=== PATIENT | male | born 1935 | race Two or more races ===

== ENCOUNTER 2020-06-18 08:30 | Outpatient (CLI) | payer OTHER ==
[~2020-06-18 08:30] MED LIST: AMARYL; ASA81 MG; LOTREL 10/40 MG1 CAP; [UNRECOGNIZED DRUG - OTHER]
== END 2020-06-18 08:35 | disposition home or self-care (01) ==
LOC: RX STUDY 08:30
PROVIDERS: ATTEND Otolaryngology Plastic Surgery within the Head & Neck
DX: R13.19 Other dysphagia (principal)

== ENCOUNTER 2024-08-01 00:31 | Emergency (ER) | payer OTHER ==
[~2024-08-01] VITALS: Ht 167.6 cm; Wt 72.6 kg
[2024-08-01] MEDS ORDERED: ISOSORBIDE DINI30 MG PO (00:39)
[2024-08-01] MEDS ORDERED: ISOSORBIDE MONO60 MG PO (00:39)
[2024-08-01] MEDS ORDERED: CARVEDILOL ER40 MG PO (00:39)
[2024-08-01] MEDS ORDERED: GLIMEPIRIDE2 MG (00:39)
[2024-08-01] MEDS ORDERED: XARELTO10 MG PO (00:39)
[2024-08-01] MEDS ORDERED: LANTUS SOL100 UNIT/1 SQ (00:40)
[2024-08-01] MEDS ORDERED: LIPITOR40 M1 PO (00:40)
[2024-08-01] MEDS ORDERED: DIPHENHYDRAMINE HCL 50 MG/ML VIAL 1ML IV STA (01:26)
[2024-08-01] MEDS ORDERED: FAMOTIDINE/PF 20 MG/2 ML VIAL IV PUSH STA (01:26)
[2024-08-01] MEDS ORDERED: METHYLPREDNISOLONE SOD SUCC 125 MG VIAL IV STA (01:26)
[2024-08-01] MEDS ORDERED: ALLEGRA ALLERG180 MG PO (03:09)
== END 2024-08-01 03:15 ==
LOC: ER 00:33
DX: L50.8 Other urticaria (principal); I10 Essential (primary) hypertension; E11.9 Type 2 diabetes mellitus without complications; Z79.4 Long term (current) use of insulin; Z91.013 Allergy to seafood
CPT/HCPCS: 96365; 99282; J1200; J3490

== ENCOUNTER 2024-09-06 05:49 | Inpatient (IN) | payer OTHER ==
[~2024-09-06] VITALS: Ht 154.9 cm; Wt 63.5 kg
[~2024-09-06 05:49] MED LIST changes: +ALLEGRA ALLERG180 MG PO; +CARVEDILOL ER40 MG PO; +GLIMEPIRIDE2 MG; +ISOSORBIDE DINI30 MG PO; +ISOSORBIDE MONO60 MG PO; +LANTUS SOL100 UNIT/1 SQ; +LIPITOR40 M1 PO; +XARELTO10 MG PO
[2024-09-06] MEDS ORDERED: FUROsemide 20 MG/2 ML VIAL IV STA (06:35)
[2024-09-06] MEDS ORDERED: NITROGLYCERIN 250 ML IV SCH (06:45)
[2024-09-06 07:14] LABS: HEMATOCRIT 41.6 % (39.0-48.0); HEMOGLOBIN 14.1 g/dL (13-16.00); MEAN CELL VOLUME 92.6 fL (80.0-100.00); MEAN CORPUSCULAR HEMOGLOBIN 31.3 pg (27.00-32.0); MEAN CORPUSCULAR HGB CONC 33.8 g/dl (32.0-36.0); PLATELET COUNT 168 K/uL (150-450); RED BLOOD COUNT 4.49 M/uL (4.00-6.00); RED CELL DISTRIBUTION WIDTH 13.9 % (11.5-14.5)
[2024-09-06 08:10] LABS: INR 1.11; PARTIAL THROMBOPLASTIN TIME 30.2 SECONDS (22.0-34.0)
[2024-09-06 08:16] LABS: ALBUMIN 3.7 gm/dL (3.4-5.0); BILIRUBIN TOTAL 0.71 mg/dL (0.3-1.2); CALCIUM 9.5 mg/dL (8.5-10.1); CREATININE SERUM 1.3 mg/dL (0.70-1.30); GFR 52.22; GLOBULINA 4.6 G/DL (2.4-3.5); POTASSIUM 4.16 mEq/L (3.5-5.1); TOTAL PROTEIN 8.3 gm/dL (6.4-8.2)
[2024-09-06] MEDS ORDERED: NITROGLYCERIN IN 5 % DEXTROSE 250 ML IV SCH (10:30)
[2024-09-06 11:28] LABS: ABG PH 7.443 (7.35-7.45)
[2024-09-06 11:29] LABS: BASE EXCESS 2.5 mmol/l; BICARBONATE 26.7 mmol/l (23-25); SaO2 88.8 %; allen test SATISFACTORY; o2 21 %; puncture site RADIAL LEFT
[2024-09-06 12:36] LABS: ABG PH 7.463 (7.35-7.45); ABG pCO2 40.7 mmHg (35-45)
[2024-09-06 12:37] LABS: ABG PO2 54.8 mmHg (80-100); BASE EXCESS 4.4 mmol/l; BICARBONATE 28.5 mmol/l (23-25); SaO2 90.4 %; Tco2 29.8 mmol/l; allen test SATISFACTORY; o2 21 %; puncture site RADIAL LEFT
[2024-09-06] MEDS ORDERED: FUROsemide 20 MG/2 ML VIAL IV ONE (13:00)
[2024-09-06] MEDS ORDERED: IPRATROPIUM BROMIDE 0.5 MG/2.5 ML AMPUL.NEB IH SCH (18:19)
[2024-09-06] MEDS ORDERED: FUROsemide 20 MG/2 ML VIAL IV SCH (18:23)
[2024-09-06] MEDS ORDERED: ENOXAPARIN SODIUM 60 MG/0.6 ML SYRINGE SUBCUTANEO SCH (18:23)
[2024-09-06] MEDS ORDERED: INSULIN LISPRO 1,000 UNIT/10 ML UNITS SUBCUTANEO PRN (18:30)
[2024-09-06] MEDS ORDERED: DEXTROSE 50 % IN WATER 0.5 G/ML DISP.SYRIN IV PRN (18:30)
[2024-09-06] MEDS ORDERED: ACETAMINOPHEN 500 MG GEL..CAP PO PRN (18:30)
[2024-09-06 19:00] VITALS: BP 150/62; O2SAT 98
[2024-09-06 19:17] VITALS: BP 130/80
[2024-09-06 20:00] VITALS: BP 149/67; O2SAT 99
[2024-09-06 20:34] LABS: URINE APPEARANCE Clear; URINE BILIRRUBIN Negative (NEGATIVE); URINE BLOOD Negative; URINE COLOR Yellow; URINE GLUCOSE Negative (NEGATIVE); URINE KETONE Negative (NEGATIVE); URINE LEUKOCYTE Negative; URINE NITRATE Negative; URINE PROTEIN Negative (NEGATIVE); URINE UROBILINOGEN 0.2 E.U./dl
[2024-09-06 20:38] LABS: URINE EPITHELIAL CELLS 2.4 uL (0.0-38.8); URINE RBC 11.7 uL (0.0-20.8); URINE WBC 37.3 uL (0.0-23.2)
[2024-09-06 20:39] LABS: URINE CAST 1.06 uL (0.0-1.40)
[2024-09-06 21:00] VITALS: BP 125/70; O2SAT 100
[2024-09-06] MEDS ORDERED: CARVEDILOL 12.5 MG TABLET PO SCH (21:00)
[2024-09-06 22:00] VITALS: BP 128/51; O2SAT 100
[2024-09-06 23:45] VITALS: BP 149/66; O2SAT 98
[2024-09-07] VITALS (9 sets, daily range): BP systolic 97–161; BP diastolic 60–75; O2SAT 99–200
[2024-09-07] MEDS ORDERED: ISOSORBIDE MONONITRATE 30 MG TABLET PO SCH (09:00)
[2024-09-07] MEDS ORDERED: ATORVASTATIN CALCIUM 40 MG TABLET PO SCH (09:00)
[2024-09-07] MEDS ORDERED: FAMOTIDINE/PF 20 MG in 0.9 % SODIUM CHLORIDE 8 ML IV PUSH SCH (09:00)
[2024-09-07] MEDS ORDERED: FUROsemide 20 MG/2 ML VIAL IV SCH (09:00)
[2024-09-07] MEDS ORDERED: RIVAROXABAN 15 MG TABLET PO SCH (09:00)
[2024-09-07 10:50] LABS: HEMATOCRIT 39.2 % (39.0-48.0); HEMOGLOBIN 13.6 g/dL (13-16.00); MEAN CELL VOLUME 91.2 fL (80.0-100.00); MEAN CORPUSCULAR HEMOGLOBIN 31.8 pg (27.00-32.0); MEAN CORPUSCULAR HGB CONC 34.8 g/dl (32.0-36.0); PLATELET COUNT 159 K/uL (150-450); RED BLOOD COUNT 4.29 M/uL (4.00-6.00); RED CELL DISTRIBUTION WIDTH 14.4 % (11.5-14.5)
[2024-09-07 10:57] LABS: ERYTHROCYTE SEDIMENTATION RATE 47 mm/hr
[2024-09-07 11:21] LABS: ALBUMIN 2.9 gm/dL (3.4-5.0); BILIRUBIN TOTAL 0.91 mg/dL (0.3-1.2); C-REACTIVE PROTEIN 5.1 MG/DL (0.00-0.29); CALCIUM 8.7 mg/dL (8.5-10.1); CHOL HDL RATIO 2.3 (0-5.0); CREATININE SERUM 1.13 mg/dL (0.70-1.30); GFR 61.38; GLOBULINA 4.4 G/DL (2.4-3.5); POTASSIUM 3.91 mEq/L (3.5-5.1); TOTAL PROTEIN 7.3 gm/dL (6.4-8.2)
[2024-09-08] VITALS (9 sets, daily range): BP systolic 128–166; BP diastolic 58–72; O2SAT 92–100
[2024-09-08] MEDS ORDERED: INSULIN GLARGINE,HUM.REC.ANLOG 1,000 UNITS/10 ML UNITS SUBCUTANEO SCH (09:00)
[2024-09-08] MEDS ORDERED: IPRATROPIUM BROMIDE 0.5 MG/2.5 ML AMPUL.NEB IH SCH (17:00)
[2024-09-09] VITALS (10 sets, daily range): BP systolic 130–172; BP diastolic 60–86; O2SAT 96–100
[2024-09-09] MEDS ORDERED: INSULIN LISPRO 1,000 UNIT/10 ML UNITS SUBCUTANEO PRN (07:15)
[2024-09-09] MEDS ORDERED: DEXTROSE 50 % IN WATER 0.5 G/ML DISP.SYRIN IV PRN (07:15)
[2024-09-09 08:07] LABS: HEMATOCRIT 38.2 % (39.0-48.0); HEMOGLOBIN 13.3 g/dL (13-16.00); MEAN CORPUSCULAR HEMOGLOBIN 31.8 pg (27.00-32.0); MEAN CORPUSCULAR HGB CONC 34.9 g/dl (32.0-36.0); PLATELET COUNT 157 K/uL (150-450); RED CELL DISTRIBUTION WIDTH 13.9 % (11.5-14.5)
[2024-09-09 08:21] LABS: ALBUMIN 2.6 gm/dL (3.4-5.0); BILIRUBIN TOTAL 0.51 mg/dL (0.3-1.2); CALCIUM 8.4 mg/dL (8.5-10.1); CREATININE SERUM 1.14 mg/dL (0.70-1.30); GFR 60.76; GLOBULINA 3.7 G/DL (2.4-3.5); POTASSIUM 3.39 mEq/L (3.5-5.1); TOTAL PROTEIN 6.3 gm/dL (6.4-8.2)
[2024-09-09] MEDS ORDERED: POTASSIUM CHLORIDE 20MEQ/100ML H2O PB IV NR (10:00)
[2024-09-09 10:06] LABS: ABG PH 7.429 (7.35-7.45); ABG PO2 66.4 mmHg (80-100); ABG pCO2 47.1 mmHg (35-45); BASE EXCESS 5.1 mmol/l; BICARBONATE 30.4 mmol/l (23-25); SaO2 93.7 %
[2024-09-09 10:07] LABS: Tco2 31.9 mmol/l; allen test SATISFACTORY; o2 21 %; puncture site RADIAL RIGHT
[2024-09-09] MEDS ORDERED: IRBESARTAN 150 MG TABLET PO NR (11:00)
[2024-09-10 00:30] VITALS: BP 137/71; O2SAT 100
[2024-09-10 00:44] VITALS: O2SAT 99
[2024-09-10 03:32] VITALS: O2SAT 99
[2024-09-10] MEDS ORDERED: INSULIN NPH HUM/REG INSULIN HM 1,000 UNIT/10 ML UNITS SUBCUTANEO SCH (08:00)
[2024-09-10 08:15] VITALS: BP 159/79; O2SAT 97
[2024-09-10] MEDS ORDERED: LASIX20 MG PO (08:49)
[2024-09-10] MEDS ORDERED: XARELTO15 MG PO (08:50)
[2024-09-10] MEDS ORDERED: IRBESARTAN 150 MG TABLET PO SCH (09:00)
[2024-09-10] MEDS ORDERED: FUROsemide 20 MG TABLET PO SCH (09:00)
[2024-09-10 09:06] VITALS: O2SAT 99
[2024-09-10] MEDS ORDERED: POTASSIUM BICARBONATE/CIT AC 25 MEQ TABLET.EFF PO NR (11:15)
== END 2024-09-10 11:00 | disposition home or self-care (01) | DRG 292 ==
LOC: ER 05:51 → SEC-K 19:10 → ICU-2 19:10 → SEC-K 09-07 07:10 → MEDI 09-07 12:56
PROVIDERS: Emergency Medicine; General Practice; Internal Medicine; ADMIT Internal Medicine; ATTEND Internal Medicine
PROC: B246ZZZ Ultrasonography of Right and Left Heart (ICD-10-PCS; principal; 2024-09-06)
PROC: 4A12X4Z Monitoring of Cardiac Electrical Activity, External Approach (ICD-10-PCS; 2024-09-06)
PROC: 3E0F7GC Introduction of Other Therapeutic Substance into Respiratory Tract, Via Natural or Artificial Opening (ICD-10-PCS; 2024-09-06)
PROC: BB24YZZ Computerized Tomography (CT Scan) of Bilateral Lungs using Other Contrast (ICD-10-PCS; 2024-09-07)
DX: I50.33 Acute on chronic diastolic (congestive) heart failure (principal); I13.0 Hypertensive heart and chronic kidney disease with heart failure and stage 1 through stage 4 chronic kidney disease, or unspecified chronic kidney disease; J91.8 Pleural effusion in other conditions classified elsewhere; N17.9 Acute kidney failure, unspecified; I48.0 Paroxysmal atrial fibrillation; E11.65 Type 2 diabetes mellitus with hyperglycemia; E87.6 Hypokalemia; N18.9 Chronic kidney disease, unspecified; Z79.01 Long term (current) use of anticoagulants; Z79.4 Long term (current) use of insulin; Z79.84 Long term (current) use of oral hypoglycemic drugs; R09.02 Hypoxemia